=== PATIENT | female | born 1970 | race Caucasian/White ===

== ENCOUNTER 2016-05-29 15:08 | Emergency (ER) ==
[2016-05-29 15:24] VITALS: BP 140/102
[2016-05-29 15:34] LABS: URINE SOURCE CLEAN CATCH
[2016-05-29 15:57] LABS: BILIRUBIN URINE NEGATIVE (NEGATIVE); BLOOD URINE TRACE (NEGATIVE); CLARITY VERY CLOUDY (CLEAR); COLOR YELLOW; GLUCOSE URINE NEGATIVE (NEGATIVE); LEUKOCYTES URINE 1+ (NEGATIVE); NITRITE URINE NEGATIVE (NEGATIVE); PH URINE 6.5; PROTEIN URINE NEGATIVE (NEGATIVE); SP GRAVITY URINE 1.005; URINE CAST NONE SEEN /LPF; URINE CRYSTAL NONE SEEN /HPF; URINE CULTURE PL NEEDED? YES; URINE EPITHELIAL CELLS >10 /HPF (<10); URINE RBC <10 /HPF (<10); UROBILINOGEN URINE NORMAL
--- NOTE | 2016-05-29 16:47 | PROVIDER DOCUMENTATION ---
HPI-General Adult - General Chief Complaint: Back Pain Stated Complaint: BACK PAIN Time Seen by Provider: 05/29/16 15:47 Source: patient Allergies/Adverse Reactions: Patient Allergies Allergy/AdvReac Type Severity Reaction Status Date / Time cephalexin monohydrate * Allergy HIVES Verified 11/23/15 19:29 [From Keflex] metronidazole [From Flagyl] Allergy HIVES Verified 11/23/15 19:29 nitrofurantoin Allergy HIVES Verified 11/23/15 19:29 [From Macrobid] nitrofurantoin Allergy HIVES Verified 11/23/15 19:29 macrocrystalline * [From Macrobid] Penicillins Allergy HIVES Verified 11/23/15 19:29 Sulfa (Sulfonamide Allergy HIVES Verified 11/23/15 19:29 Antibiotics) Home Medications: Gabapentin 600 mg PO BID 10/26/15 Metoprolol [Lopressor] 25 mg PO BID 10/26/15 - History of Present Illness -Gen Adult Nature of Presenting Problems: 46 y/o WF c/o diarrhea, low back pain, dark urine for 1 month now. Denies dysuria, but states she is having cramping with urination. Fevers, subjective and chills. Abdominal pain int he lower abdomen, suprapubic, and moves in to the back. Tried taking AZOs without relief. Diarrhea for a month, that is dark brown that is regular brown. Review of Systems - Adult - REVIEW OF SYSTEMS - ADULT Constitutional: reports: see HPI, chills, fever, fatique Eyes: reports: no symptoms reported. denies: blurred vision, double vision, eye pain Ears, Nose, Mouth & Throat: reports: no symptoms reported. denies: ear pain, nose pain, throat pain Cardiovascular: reports: no symptoms reported. denies: chest pain, palpitations Respiratory: reports: no symptoms reported. denies: cough, pleurisy, shortness of breath, wheezing Gastrointestinal: reports: see HPI, abdominal pain, diarrhea, nausea. denies: vomiting Genitourinary: reports: see HPI. denies: dysuria, discharge, frequency, flank pain, incontinence, urgency Musculoskeletal: reports: no symptoms reported Integumentary: reports: no symptoms reported. denies: rash Neurological: reports: see HPI, headache/migraines. denies: ataxia, dizziness/ vertigo Psychiatric: reports: no symptoms reported Endocrine: reports: no symptoms reported Hematologic/Lymphatic: reports: no symptoms reported Allergic/Immunologic: reports: no symptoms reported All Other Systems: Reviewed and Negative Past History - Adult - PAST MEDICAL HISTORY-ADULT Review of Records: reports: Old Records Reviewed, Nursing Assessment Review, Medications Reviewed, Social history reviewed & non-contributory. Major Childhood Illnesses: reports: denies history Cardiovascular: reports: HTN Respiratory: reports: denies history Gastrointestinal: reports: pancreatitis Obstetrical/Gynecological: reports: denies history Genitourinary: reports: denies history Musculoskeletal: reports: chronic pain Neurological: reports: Seizures/Epilepsy Psychiatric: reports: anxiety Endocrine/Immune: reports: denies history Other Conditions: reports: denies history - PRIOR SURGERIES/PROCEDURES Surgical/Procedure History: reports: cholecystectomy - IMMUNIZATION STATUS Childhood Immunizations: See Nurse Assessment Flu Vaccine: See Nurse Assessment - FAMILY HISTORY Family History: reviewed, not pertinent Physical Exam-General - PHYSICAL EXAM-ADULT Initial Vital Signs Reviewed: Yes - CONSTITUTIONAL General Appearance: appears well, alert, no apparent distress - EYES Eyes: PERRL/EOMI, pink conjunctivae - HEAD, EARS, NOSE, MOUTH & THROAT HENMT: normocephalic/atraumatic, moist mucous membranes - NECK Neck: non-tender, full range of motion, supple, normal inspection. negative: lymphadenopathy - RESPIRATORY Respiratory: chest non-tender, lungs clear, normal breath sounds, no pleuratic chest pain, no respiratory distress, no accessory muscle use. negative: respiratory distress, decreased breath sounds, accessory muscle use, crackles, rales, rhonchi, wheezing - CARDIOVASCULAR Cardiovascular: normal peripheral pulses, regular rate, rhythm, no edema - GASTROINTESTINAL (ABDOMEN) Abdominal Exam: normal bowel sounds, non tender, soft - LYMPHATIC Lymphatic: no adenopathy - MUSCULOSKELETAL Back Exam: normal inspection, no CVA tenderness, no vertebral tenderness Extremity: normal range of motion, non-tender, normal gait - SKIN Integumentary: normal color, normal turgor, warm/dry - NEUROLOGIC Neurologic: grossly normal, no motor/sensory deficits - PSYCHIATRIC Psych/Mental Status: normal mood/affect, normal thought content, normal thought process, oriented x 3 Progress - PLAN OF CARE/RESULTS Progress/Plan/Lab Results: Vital Signs Temp Pulse Resp BP Pulse Ox 05/29/16 15:22 98.2 F 96 H 18 140/102 99 cephalexin monohydrate * [From Keflex] Allergy (Verified 11/23/15 19:29) HIVES metronidazole [From Flagyl] Allergy (Verified 11/23/15 19:29) HIVES nitrofurantoin [From Macrobid] Allergy (Verified 11/23/15 19:29) HIVES nitrofurantoin macrocrystalline * [From Macrobid] Allergy (Verified 11/23/15 19: 29) HIVES Penicillins Allergy (Verified 11/23/15 19:29) HIVES Sulfa (Sulfonamide Antibiotics) Allergy (Verified 11/23/15 19:29) HIVES Gabapentin 600 mg PO BID 10/26/15 Metoprolol [Lopressor] 25 mg PO BID 10/26/15 Levetiracetam [Keppra] 500 mg PO BID #60 tablet 11/23/15 Dicyclomine [Bentyl] 10 mg PO TID AC #30 capsule 01/06/16 Ciprofloxacin HCl [Cipro] 500 mg PO BID #14 tablet 05/29/16 Dextran 70/Hypromellose [Artificial Tears Eye Drops] 2 ml OP BID #1 drops Diphenoxylate/Atropine [Lomotil] 1 each PO 4XDAY PRN PRN #7 tablet 05/29/16 Ketorolac 0.5% Ophth Soln [Acular 0.5% Ophth Soln] 1 drop LEFT EYE 4XDAY PRN PRN #1 bottle 05/29/16 Laboratory 05/29/16 15:33 Urine Source CLEAN CATCH Urine Color YELLOW Urine Clarity VERY CLOUDY A Urine pH 6.5 Ur Specific [place] 1.005 Urine Protein NEGATIVE Urine Ketones NEGATIVE Urine Blood TRACE Urine Nitrite NEGATIVE Urine Bilirubin NEGATIVE Urine Urobilinogen NORMAL Urine Microscopic RBC <10 Urine WBC 1+ A Urine Microscopic WBC 10-20 A Ur Epithelial Cells >10 A Urine Crystals NONE SEEN Urine Bacteria 1+ Urine Casts NONE SEEN Urine Yeast NONE SEEN Urine Glucose NEGATIVE Orders Category Date Time Status URINALYSIS PL W/POSS RFLX CULT [URINALYSIS] Stat Lab 05/29/16 15:33 Completed URINE CULTURE [RM] Routine Lab 05/29/16 15:58 Ordered Departure - Departure Time of Disposition Order: 16:46 DIAGNOSIS: Acute UTI Diarrhea Qualifiers: Diarrhea type: unspecified type Qualified Code(s): R19.7 - Diarrhea, unspecified Conjunctivitis Qualifiers: Conjunctivitis type: acute Acute conjunctivitis type: atopic Laterality: left Qualified Code(s): H10.12 - Acute atopic conjunctivitis, left eye Disposition: HOME 01 Certified Medical Emergency: Emergent Condition: Stable Additional Instructions: Follow up with your primary care physician ED Follow Up Instructions: You have been treated by a care provider in the Emergency Department. These instructions are being provided to you so you can have an understanding of how to care for yourself upon discharge. Upon discharge from the Emergency Department, you are responsible for making arrangements for follow-up care by a physician of your choice. Take all prescribed medications as directed. Return to the Emergency Department immediately for any new or worsening symptoms. You may call the Physician Referral phone number at [phone] to obtain a list of Physicians who are taking new patients. Prescriptions: Ketorolac 0.5% Ophth Soln [Acular 0.5% Ophth Soln] 1 drop LEFT EYE 4XDAY PRN PRN #1 bottle PRN Reason: Pain Dextran 70/Hypromellose [Artificial Tears Eye Drops] 2 ml OP BID #1 drops Ciprofloxacin HCl [Cipro] 500 mg PO BID #14 tablet Diphenoxylate/Atropine [Lomotil] 1 each PO 4XDAY PRN PRN #7 tablet PRN Reason: Diarrhea Referrals: Christen Mak MD [Primary Care Provider] - Shani Cooper MD [STAFF PHYSICIAN] - Forms: Return to School/Parent Work Instructions: Diarrhea, Atropine; Diphenoxylate tablets, Urinary Tract Infection, Ketorolac tablets, Ciprofloxacin tablets Attestation - Physician/ Mid-level Attestation Patient care was provided by Mid-level provider (MARKING CLERK/PA):: Yes Mid-level provider:: Leonor Swanson Mid-level documentation review:: The Mid-level provider documentation, treatment plan and medical decision making was reviewed by the physician who agrees with all treatment and medical decision making by the MLP.
== END 2016-05-29 17:11 | disposition home or self-care (01) ==
LOC: P.ED 15:08
DX: N39.0 Urinary tract infection, site not specified (principal); H10.12 Acute atopic conjunctivitis, left eye; R19.7 Diarrhea, unspecified; M54.5 Low back pain; R50.9 Fever, unspecified; R10.30 Lower abdominal pain, unspecified; R10.9 Unspecified abdominal pain; R53.83 Other fatigue; R51 Headache; I10 Essential (primary) hypertension; G89.29 Other chronic pain; R56.9 Unspecified convulsions; Z79.899 Other long term (current) drug therapy
CPT/HCPCS: 81001; 87088; 99283